=== PATIENT | female | born 1945 | race Caucasian/White ===

== ENCOUNTER 2016-10-22 13:38 | Emergency (ER) | payer OTHER ==
[~2016-10-22] VITALS: Ht 162.6 cm; Wt 55.0 kg
[2016-10-22 13:41] VITALS: Ht 162.6 cm; Wt 55.0 kg
[2016-10-22] MEDS ORDERED: LIDOCAINE 2% (MDV) 20 ML INJ INJ ONE (14:30)
[2016-10-22] MEDS ORDERED: SULF1TAB31 PO (15:26)
[2016-10-22] MEDS ORDERED: IBUP400T22 PO (15:27)
--- NOTE | 2016-10-22 15:33 | ERD ---
ER Documentation Chief Complaint Date/Time DATE: 10/22/16 TIME: 15:30 Chief Complaint ingrown toenail on 1st toe on left foot HPI This is a 71-year-old female presents to the ER with a left first toe ingrown toenail. Patient has had this over the last 2 weeks, her son try to teach her primary care doctor in urgent care however he was told he did not have any appointments. Patient does not have any fevers or chills. She denies any trauma to her toe. There is no discharge from her nail. ROS 12 point review of systems was done, all negative except per HPI. Medications Home Meds Active Scripts Ibuprofen* (Motrin*) 400 Mg Tab, 400 MG PO Q6, #30 TAB Prov:SUZY LEMON 10/22/16 Sulfamethoxazole/Trimethoprim* (Bactrim Ds* Tablet) 1 Each Tablet, 1 TAB PO BID , #14 TAB Prov:SUZY LEMON 10/22/16 Allergies Allergies: Uncoded Allergies: PENICILLIN (Allergy, Unknown, 10/22/16) PMhx/Soc History of Surgery: No Anesthesia Reaction: No Hx Neurological Disorder: No Hx Respiratory Disorders: No Hx Cardiac Disorders: No Hx Psychiatric Problems: No Hx Miscellaneous Medical Probl: No Hx Alcohol Use: No Hx Substance Use: No Hx Tobacco Use: No Smoking Status: Never smoker Physical Exam Vitals Vital Signs Date Time Temp Pulse Resp B/P Pulse Ox O2 Delivery O2 Flow Rate FiO2 10/22/16 13:41 97.8 99 18 134/63 98 Physical Exam GENERAL: The patient is well developed and appropriate for usual state of health , in no apparent distress. HEENT: Atraumatic. CHEST: Clear to auscultation bilaterally. There are no rales, wheezes or rhonchi. HEART: Regular rate and rhythm. No murmurs, clicks, rubs or gallops. EXTREMITIES: Patient has an ingrown toenail to the left first toe there is no discharge, redness or swelling of the area. It is however tender to palpation to the distal tip of the toe. NEURO: Alert and oriented. Results 24 hrs Current Medications Medications (Trade) Dose Ordered Sig/Alejandra Route PRN Reason Start Time Stop Time Status Last Admin Dose Admin Lidocaine (Xylocaine 2% (Mdv) 20 ml) 20 ml ONCE ONCE INJ 10/22/16 14:30 10/22/16 14:31 DC Procedures/MDM After patient's verbal consent, the affected foot was soaked in diluted Betadine. Using aseptic technique, 5 ml of 1% lidocaine without epinephrine was used to do a digital block on the affected toe. After digital block, the ingrown toenail was removed. After the procedure, Bacitracin and dry dressing was applied to the area. Patient tolerated procedure well. This is a 71-year- old female who presents to the ER with an ingrown toenail. Procedure was done without any complications. Patient was sent home with Bactrim and ibuprofen. She is to follow-up with her primary care doctor within 1-2 days return to ER sooner if symptoms worsen. My medical decision making shared with the patient she understands and agrees with plan. Departure Diagnosis: Primary Impression: Ingrown toenail Condition: Stable Patient Instructions: Ingrown Toenail, Excised Additional Instructions: Llame al doctor MASHIREEN y mello ranjith KIKA PARA DENTRO DE 1-2 GALARZA.Dgale a la secretaria que nosotros le instruimos hacer esta kika.Avise o llame si nuñez condicin se empeora antes de la kika. Regresa aqui si peor o no mejor. SUZY LEMON Oct 22, 2016 15:33
== END 2016-10-22 15:42 | disposition home or self-care (01) ==
LOC: FTE 13:38
DX: L60.0 Ingrowing nail (principal)